=== PATIENT | female | born 1995 | race Caucasian/White ===

== ENCOUNTER 2023-03-22 18:17 | Emergency (ER) | payer OTHER, SELFPAY ==
[2023-03-22] VITALS (16 sets, daily range): BP systolic 114–134; BP diastolic 89–101; PULSE 74–126; RESP 13–25; TEMP 37.4; O2SAT 88–100; BMI 23.7
--- NOTE | 2023-03-22 18:34 | ECG_ITS ---
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
--- NOTE | 2023-03-22 18:36 | ED_ITS ---
HPI - Dizziness General Chief Complaint: Syncope Stated Complaint: irregular heart beat, feel like passing Time Seen by Provider: 03/22/23 18:23 Source: patient Mode of arrival: walk-in Limitations: no limitations History of Present Illness HPI Narrative: Since drinking excessive amount of alcohol on February 25, the patient has been experiencing palpitations and bouts of dizziness to the point in which she sometimes feels like I am going to pass out . No prior history of dysrhythmia, thyroid issues or electrolyte abnormalities. On further questioning, the patient admits to being a regular, heavy alcohol drinker through February 25. Then she took some time off from alcohol use - about 2 weeks - before resuming daily alcohol use but at a smaller amount. She had a shot of liquor this morning because it seems to calm my nerves . Related Data Home Medications Medication Instructions Recorded Confirmed No Known Home Medications 03/22/23 03/22/23 Allergies Allergy/AdvReac Type Severity Reaction Status Date / Time No Known Drug Allergies Allergy Verified 03/22/23 18:25 Exam Narrative Exam Narrative: Nurses notes and vital signs reviewed and patient is not hypoxic. afebrile General: Well-appearing and in no apparent distress. Skin: Warm, dry, no pallor noted. No rash. Head: Normocephalic, atraumatic. Eye: Pupils are equal, round and EOMI. No scleral icterus. Ears, Nose, Mouth, and Throat: Oral mucosa is slightly dry Cardiovascular: tachycardia. Respiratory: No accessory muscle use or respiratory distress. Lungs are clear to auscultation, no wheezing, rales or rhonchi Musculoskeletal: normal ROM, no calf or popliteal tenderness, no lower extremity edema/swelling GI: Abdomen is soft, non-distended. Normal bowel sounds. No masses appreciated. No tenderness to palpation. No rebound, guarding, or rigidity noted. Neurological: A&O x4. No cranial nerve dysfunction observed. No truncal ataxia. Moves all extremities. Sensation intact. Psychiatric: Cooperative and interactive. Normal mood and affect. Constitutional Vital Signs, click to edit/add: Last Vital Signs Temp 99.3 F 03/22/23 18:19 Pulse 104 H 03/22/23 18:45 Resp 20 03/22/23 18:19 BP 125/89 03/22/23 18:45 Pulse Ox 98 03/22/23 18:19 O2 Del Method Room Air 03/22/23 18:19 Course Vital Signs Vital signs: Vital Signs Temperature 99.3 F 03/22/23 18:19 Pulse Rate 126 H 03/22/23 18:19 Respiratory Rate 20 03/22/23 18:19 Blood Pressure 132/101 H 03/22/23 18:19 Pulse Oximetry 98 03/22/23 18:19 Oxygen Delivery Method Room Air 03/22/23 18:19 Temperature 99.3 F 03/22/23 18:19 Pulse Rate 104 H 03/22/23 18:45 Respiratory Rate 20 03/22/23 18:19 Blood Pressure 125/89 03/22/23 18:45 Pulse Oximetry 98 03/22/23 18:19 Oxygen Delivery Method Room Air 03/22/23 18:19 MDM - Dizziness MDM Narrative Medical decision making narrative: Patient was placed on residential monitor and EKG obtained. Blood drawn and sent for evaluation including thyroid studies, magnesium and electrolytes, renal function and . orthostatic vital signs were obtained. Patient received a liter of normal saline IV fluid. Patient signed out to Dr Coy to review the test results, response to therapy and determine appropriate disposition. Discharge Plan Discharge Chief Complaint: Syncope Clinical Impression: Heart palpitations Patient Disposition: Still a Patient Prescriptions / Home Meds: No Action No Known Home Medications Referrals: Satish Welch MD [Primary Care Provider] - 1 week
[2023-03-22] MEDS: 0.9 % SODIUM CHLORIDE 1,000 ML 999 ML IV (18:51)
[2023-03-22 18:52] LABS: Basophils Absolute Auto 0.1 10^3/uL (0.0-0.1); Basophils Percent Auto 0.4 % (0.2-2.0); Eosinophils Percent Auto 0.2 % (0.9-7.0); Hematocrit 44.1 % (36.0-48.0); Hemoglobin 15.5 g/dL (12.0-16.0); Immature Granulocytes Abs Auto 0.02 10^3/uL (0.00-0.03); Immature Granulocytes Pct Auto 0.2 % (0.0-0.5); Lymphocytes Absolute Auto 1.8 10^3/uL (1.2-3.8); Lymphocytes Percent Auto 15.5 % (20.5-60.0); Mean Corpuscular HGB Conc 35.1 g/dL (29.9-35.2); Mean Corpuscular Hemoglobin 34.2 pg (26.7-34.0); Mean Corpuscular Volume 97.4 fL (81.0-99.0); Mean Platelet Volume 9.8 fL (9.5-13.5); Monocytes Absolute Auto 0.6 10^3/uL (0.3-0.8); Monocytes Percent Auto 4.9 % (1.7-12.0); Neutrophils Absolute Auto 9.3 10^3/uL (1.4-6.5); Neutrophils Percent Auto 78.8 % (43.0-75.0); Platelet Count 300 10^3/uL (150-450); Red Blood Count 4.53 10^6/uL (4.20-5.40); Red Cell Distribution Width 11.3 % (11.0-15.0); White Blood Count 11.8 10^3/uL (4.0-11.0)
[2023-03-22 19:07] LABS: Alanine Aminotransferase 29 U/L (14-59); Albumin Globulin Ratio 1.5; Albumin Level 4.8 g/dL (3.4-5.0); Alkaline Phosphatase 55 U/L (46-116); Anion Gap 16.2; Aspartate Amino Transferase 7 U/L (15-37); BUN Creatinine Ratio 6.8; Bilirubin Total 0.8 mg/dL (0.2-1.0); Calcium 9.2 mg/dL (8.5-10.1); Carbon Dioxide 23.2 mmol/L (21.0-32.0); Chloride 103 mmol/L (98-107); Estimated GFR (African America >60 (>=60); Estimated GFR (Non-African Ame >60 (>=60); Globulin 3.1 g/dL; Glucose 99 mg/dL (74-106); Potassium 3.4 mmol/L (3.5-5.1); Sodium 139 mmol/L (136-145); Total Protein 7.9 g/dL (6.4-8.2)
[2023-03-22 19:15] LABS: Magnesium 1.9 mg/dL (1.8-2.4); Thyroid Stimulating Hormone 1.897 uIU/mL (0.358-3.740)
[2023-03-22 19:47] LABS: HCG Qualitative NEGATIVE (NEGATIVE)
== END 2023-03-22 20:28 | disposition home or self-care (01) ==
PROVIDERS: Emergency Provider Emergency Medicine; PCP Family Medicine
DX: R00.2 Palpitations (principal); E87.6 Hypokalemia
CPT/HCPCS: 36415; 80053; 83735; 84443; 84703; 85025; 93005; 96360; 99284

== ENCOUNTER 2025-05-13 18:22 | Emergency (ER) | payer OTHER, SELFPAY ==
[2025-05-13 18:29] VITALS: BP 127/98; PULSE 99; TEMP 36.7; O2SAT 98; BMI 31.4
--- OUTSIDE RECORDS SUMMARY | 2025-05-13 18:29 | XMS_ITS | Encounter Summary ---
Author Organization [facility] Address [address] [place] [address] Care Team Providers Care Equipment Maintenance Tech Name Role Phone Satish Welch MD Primary Care Provider [phone] Shaikh BERTA Hermosillo Unavailable [phone] Encounter Details Date Type Department Care Team (Late st Contact Info) Description 01/12/2025 Orders Only [facility] [address] [place] [address] Satish Welch MD [address] [place] [address] Social History Tobacco Use Types Packs/Day Years Used Date Smoking Tobacco: Every Day Cigarettes Smokeless Tobacco: Current Alcohol Use Standard Drinks/Week Comments Yes 56 (1 standard drink = 0.6 oz pu re alcohol) B1300 Health Literacy Answer Date Recor ded How often do you need to hav e someone help you when you read instructions, pamphlets, or other written material from your doctor or pharmacy? Never 03/24/2024 Social Connection and Isolation Panel [NHANES] A nswer Date Recorded In a typical week, how many times do you talk on the phone with family, friends, or neighbors? Once a week 03/24/20 How often do you get togethe r with friends or relatives? Never 03/24/2024 How often do you attend chur ch or mormon services? Never 03/24/2024 Do you belong to any clubs o r organizations such as jewish groups, unions, fraternal or athletic groups, or school groups? No 03/24/2024 How often do you attend meet ings of the clubs or organizations you belong to? Never 03/24/2024 Are you , , di vorced, , never , or living with a partner? Living with partner 03/24/2024 AUDIT-C Answer Date Recorded Q1: How often do you have a drink containing alcohol? 4 or more times a week 03/24/2024 Q2: How many drinks containi ng alcohol do you have on a typical day when you are drinking? 5 or 6 Q3: How often do you have si x or more drinks on one occasion? Daily or almost daily 03/24/2024 Overall Financial Resource Strain (CARDIA) Answe r Date Recorded How hard is it for you to pa y for the very basics like food, housing, medical care, and heating? Somewhat hard 03/24/2024 [facility] of Occupat ional Health - Occupational Stress Questionnaire Answer Date Recorded Do you feel stress - tense, restless, nervous, or anxious, or unable to sleep at night because your mind is troubled all the time - these days? Very much 03/24/2024 Exercise Vital Sign Answer Date Recorde d On average, how many days pe r week do you engage in moderate to strenuous exercise (like a brisk walk)? 1 day 03/24/2024 On average, how many minutes do you engage in exercise at this level? 10 min 03/24/2024 Hunger Vital Sign Answer Date Recorded Within the past 12 months, y ou worried that your food would run out before you got the money to buy more. Sometimes true Within the past 12 months, t he food you bought just didn't last and you didn't have money to get more. Never true PRAPARE - Transportation Answer Date Re corded In the past 12 months, has l ack of transportation kept you from medical appointments or from getting medications? Yes 03/11 In the past 12 months, has l ack of transportation kept you from meetings, work, or from getting things needed for daily living? No 03/24/2024 Housing Stability Vital Sign Answer Dominik e Recorded In the last 12 months, was t here a time when you were not able to pay the mortgage or rent on time? No 03/24/2024 In the past 12 months, how m any times have you moved where you were living? 0 03/24/2024 At any time in the past 12 m [facility], were you homeless or living in a intermediate (including now)? No 03/24/2024 Comments Unknown Sex and Gender Information Value Date Recorded Sex Assigned at Not on file Legal Sex Female 7:23 PM EDT Gender Identity Not on file Sexual Orientation Not on file documented as of this encounter Plan of Treatment Not on file documented as of this encounter Visit Diagnoses Not on filedocumented in this encounter Care Teams Equipment Maintenance Tech Relationship Specialty Start Date End Date Satish Welch MD PCP - General Family Medicine 03/15/24 Shaikh Hermosillo MD [address] [place] [address] PCP - [facility] 08/11/24 documented as of this encounter
--- OUTSIDE RECORDS SUMMARY | 2025-05-13 18:29 | XMS_ITS | Encounter Summary ---
Author Organization [facility] Address [address] [place] [address] Care Team Providers Care Wanigan Clerk Name Role Phone Satish Welch MD Primary Care Provider [phone] Shaikh BERTA Hermosillo Unavailable [phone] Encounter Details Date Type Department Care Team (Late st Contact Info) Description 12/28/2024 Results Follow-Up [facility] [address] [place] [address] Satish Welch MD [address] [place] [address] Hemoglobin A1c, Basic metabolic panel, CBC and differential, Additional followed-up results: 3 Social History Tobacco Use Types Packs/Day Years [...] friends, or neighbors? Once a week 03/24/20 24 How often do you get togethe r with friends or relatives? Never 03/24/2024 How often do you attend chur ch or gnosticism services? Never 03/24/2024 Do you belong to any clubs o r organizations such as sikh groups, unions, fraternal or athletic groups, or [...] medical care, and heating? Somewhat hard 03/24/2024 [facility] of Occupat ional Health - Occupational Stress [...] any time in the past 12 m [facility], were you homeless or living in a senior care (including now)? No 03/24/2024 Comments Unknown Sex and Gender Information Value Date Recorded Sex Assigned at Not on file Legal Sex Female 7:23 PM EDT Gender Identity Not on file Sexual Orientation Not on file documented as of this encounter Plan of Treatment Not on file documented as of this encounter Visit Diagnoses Not on filedocumented in this encounter Care Teams Wanigan Clerk Relationship Specialty Start Date End Date Satish Welch MD PCP - General Family Medicine 03/15/24 Shaikh Hermosillo MD [address] [place] [address] PCP - [facility] 08/11/24 documented as of this encounter
--- OUTSIDE RECORDS SUMMARY | 2025-05-13 18:29 | XMS_ITS | Encounter Summary ---
Author Organization [facility] Address [address] [place] [address] Care Team Providers Care Business Applications Manager Name Role Phone Satish Welch MD Primary Care Provider [phone] Shaikh BERTA Hermosillo Unavailable [phone] Reason for Visit * Reason Onset Date Comments Med Refill 02/23/2025 Encounter Details Date Type Department Care Team (Late st Contact Info) Description 02/23/2025 Refill [facility] [address] [place] [address] Satish Welch MD [address] [place] [address] Insomnia due to stress (Primary Dx) Social History Tobacco Use Types Packs/Day Years [...] 03/24/2024 How often do you attend chur or advent services? Never 03/24/2024 Do you belong to any clubs o r organizations such as buddhism groups, unions, fraternal or athletic groups, or [...] medical care, and heating? Somewhat hard 03/24/2024 [facility] of Occupat ional Health - Occupational Stress [...] any time in the past 12 m [facility], were you homeless or living in a fdc (including now)? No 03/24/2024 Comments Unknown Sex and Gender Information Value Date Recorded Sex Assigned at Not on file Legal Sex Female 7:23 PM EDT Gender Identity Not on file Sexual Orientation Not on file documented as of this encounter Miscellaneous Notes * Telephone Encounter - Satish Welch MD - 02/24/2025 4:31 PM EDT Trazodone sent to use as needed. Need to reschedule office visit. documented in this encounter Plan of Treatment Not on file documented as of this encounter Visit Diagnoses Diagnosis Insomnia due to stress- Primary documented in this encounter Care Teams Business Applications Manager Relationship Specialty Start Date End Date Satish Welch MD PCP - General Family Medicine 03/15/24 Shaikh Hermosillo MD [address] [place] [address] PCP - [facility] 08/11/24 documented as of this encounter
--- OUTSIDE RECORDS SUMMARY | 2025-05-13 18:29 | XMS_ITS | Clinical Summary ---
Author Organization [facility] Address [id number] [address] [place] [address] Care Team Providers Care Alcoholism Worker Name Role Phone Satish Welch MD Primary Care Provider [phone] Allergies No known active allergies Medications [id number] a-fish oil ( GUMMY) 400 mcg-35 mg -25 mg-5 mg tablet,chewable Chew 1 tablet and swallow daily. 1 Active ondansetron ODT (ZOFRAN ODT) 4 mg disintegrating tablet Dissolve 1 tablet (4 mg total) on tongue every 8 (eight) hours as needed for nausea for up to 10 doses. 10 tablet 2 Active ibuprofen (MOTRIN) 800 mg tablet Take 1 tablet (800 mg total) by mouth 3 (three) times a day. 21 tablet 2 Active Active Problems No known active problems Family History Medical History Relation Name Comments No Known Problems Father Depression Mother Relation Name Status Comments Father Mother Social History Tobacco Use Types Packs/Day Years Used Date Smoking Tobacco: Every Day Cigarettes Vaping/E-cigarettes Smokeless Tobacco: Never Tobacco Cessation:Ready to Q uit: No; Counseling Given: Yes Alcohol Use Standard Drinks/Week Comments Yes 0 (1 standard drink = 0.6 oz pur e alcohol) Childcare Answer Date Recorded Childcare Unknown 07/25/2020 Employment Answer Date Recorded Employment Unknown 07/25/2020 Purpose - Life Answer Date Recorded Purpose and direction in life Unknown Comments No Sex and Gender Information Value Date Recorded Sex Assigned at Not on file Legal Sex Female 11:50 AM EDT Gender Identity Not on file Sexual Orientation Not on file Last Filed Vital Signs Vital Sign Reading Time Taken Comments Blood Pressure 125/92 02/26/2022 8:45 PM EDT Pulse 100 02/26/2022 8:44 PM EDT Temperature 36.9 C (98.5 F) 02/26/2022 8:44 PM EDT Respiratory Rate 20 02/26/2022 8:44 PM EDT Oxygen Saturation 96% 02/26/2022 8:45 PM EDT Inhaled Oxygen Concentration - - Weight 61.2 kg (135 lb) 02/26/2022 8:44 PM EDT Height 162.6 cm (5' 4 ) 02/26/2022 8:44 PM EDT Body Mass Index 23.17 02/26/2022 8:44 PM EDT Plan of Treatment Health Maintenance Due Date Last Done Comments Depression Screening 2007 Tobacco Screening 2007 Adult BMI Screening 2013 DTaP,Tdap and Td Vaccines (1 - Tdap) 2014 Pap Smear 2016 Influenza Vaccine 04/11/2025 Medical Devices Not on file Insurance Care Teams Alcoholism Worker Relationship Specialty Start Date End Date Satish Welch MD PCP - General Family Medicine 07/25/20
--- OUTSIDE RECORDS SUMMARY | 2025-05-13 18:29 | XMS_ITS | Clinical Summary ---
Author Organization [facility] Address [address] [place] [address] Care Team Providers Care Barber Shop Manager Name Role Phone Satish Welch MD Primary Care Provider [phone] Shaikh BERTA Hermosillo Unavailable [phone] Allergies No known active allergies Medications hydrOXYzine HCl (Atarax) 25 MG tabletIndication s:JOSE (generalized anxiety disorder) Take 1 tablet (25 mg) by mouth 4 (four) times a day as needed for anxiety 30 tablet 2 02/14/2025 Active omeprazole (PriLOSEC) [address] capsuleIndicatio ns:Chronic superficial gastritis without bleeding Take 1 capsule (40 mg) by mouth in the morning. Take before meals. Do not crush or chew. 30 capsule 3 02/17/2025 Active FLUoxetine (PROzac) 20 MG capsuleIndicatio ns:MDD (major depressive disorder), recurrent episode, moderate (HCC) Take 1 capsule (20 mg) by mouth Daily 30 capsule 3 02/17/2025 Active traZODone (Desyrel) 50 MG tabletIndication s:Insomnia due to stress Take 1 tablet (50 mg) by mouth at bedtime 30 tablet 3 02/24/2025 Active Active Problems Problem Noted Date Diagnosed Date Insomnia due to stress 02/24/2025 Class 1 obesity due to exces s calories without serious comorbidity with body mass index (BMI) of 32.0 to 32.9 in adult 01/12/2025 Encounter for long-term (current) use of medicat ions 01/12/2025 Annual physical exam 12/23/2024 Assessment & Plan (12/23/2024 9:57 AM EDT): Due for labs. Discussed proper diet and regular aerobic exercise. Need aerobic exercise 5-6 days a week for 30 minutes at a time. Smaller portions and limit total calories. Colonoscopy after age 45. Tetanus every 10 years. Advised not to smoke. JOSE (generalized anxiety disorder) 12/23/2024 MDD (major depressive disord er), recurrent episode, moderate 12/23/2024 Chronic superficial gastritis without bleeding 0 12/23/2024 Resolved Problems Problem Noted Date Diagnosed Date Resolved Date Dental infection 02/23/2024 12/23/2024 Assessment & Plan (02/23/2024 2:57 PM EDT): No overt dental abscess or systemic signs Will treat with oral augmentin. Recommended evaluated by dentist Yeast infection of the vagina 02/23/2024 12/23/2024 Assessment & Plan (02/23/2024 2:57 PM EDT): Will call in Fluconazole. Encounters Date Type Department Care Team Description 02/28/2025 Refill [facility] [address] [place] [id number] Satish Welch MD 02/27/2025 Refill [facility] [address] [place] [address] Satish Welch MD Closed fracture of tooth, initial encounter 02/24/2025 Refill [facility] [address] [place] [address] Satish Welch MD Closed fracture of tooth, initial encounter 02/23/2025 Refill [facility] [address] [place] [address] Satish Welch MD Insomnia due to stress (Primary Dx) 02/17/2025 Refill [facility] [address] [place] [address] Satish Welch MD Chronic superficial gastritis without bleeding; MDD (major depressive disorder), recurrent episode, moderate (HCC); Closed fracture of tooth, initial encounter 02/14/2025 Refill [facility] [address] [place] [address] Satish Welch MD JOSE (generalized anxiety disorder) ; Closed fracture of tooth, initial encounter from Last 3 Months Family History Medical History Relation Name Comments No Known Problems Father Coronary artery disease Maternal Grandfather Stroke Mother Relation Name Status Comments Father Maternal Grandfather Mother Social History Tobacco Use Types Packs/Day Years Used Date Smoking Tobacco: Every Day Cigarettes Smokeless Tobacco: Current Tobacco Cessation:Ready to Q uit: Not Asked; Counseling Given: Not Answered Alcohol Use Standard Drinks/Week Comments Yes 56 [...] often do you attend chur ch or jew services? Never 03/24/2024 Do you belong to any clubs o r organizations such as quaker groups, unions, fraternal or athletic groups, or [...] medical care, and heating? Somewhat hard 03/24/2024 [facility] of Occupat ional Health - Occupational Stress [...] any time in the past 12 m [facility], were you homeless or living in a halfway (including now)? No 03/24/2024 Comments Unknown Sex and Gender Information Value Date Recorded Sex Assigned at Not on file Legal Sex Female 7:23 PM EDT Gender Identity Not on file Sexual Orientation Not on file Last Filed Vital Signs Vital Sign Reading Time Taken Comments Blood Pressure 140/78 12/23/2024 9:29 AM EDT Pulse 102 12/23/2024 9:29 AM EDT Temperature 36.6 C (97.8 F) 12/23/2024 9:29 AM EDT Respiratory Rate 20 12/23/2024 9:29 AM EDT Oxygen Saturation 99% 12/23/2024 9:29 AM EDT Inhaled Oxygen Concentration - - Weight 86.6 kg (191 lb) 12/23/2024 9:29 AM EDT Height 162.6 cm (5' 4 ) 12/23/2024 9:29 AM EDT Body Mass Index 32.79 12/23/2024 9:29 AM EDT Plan of Treatment Health Maintenance Due Date Last Done Comments Influenza Vaccine (#1) 2025 Insurance [employer] Care Teams Barber Shop Manager Relationship Specialty Start Date End Date Satish Welch MD PCP - General Family Medicine 03/15/24 Shaikh Hermosillo MD [address] [place] [address] PCP - [facility] 08/11/24
--- OUTSIDE RECORDS SUMMARY | 2025-05-13 18:29 | XMS_ITS | Encounter Summary ---
Author Organization [facility] Address [address] [place] [address] Care Team Providers Care Ballaster Name Role Phone Satish Welch MD Primary Care Provider [phone] Shaikh BERTA Hermosillo Unavailable [phone] Reason for Visit * Reason Onset Date Comments Med Refill 02/28/2025 Encounter Details Date Type Department Care Team (Late st Contact Info) Description 02/28/2025 Refill [facility] [address] [place] [address] Satish Welch MD [address] [place] [address] Social History Tobacco Use Types Packs/Day Years [...] often do you attend chur ch or synagogue services? Never 03/24/2024 Do you belong to any clubs o r organizations such as sikhism groups, unions, fraternal or athletic groups, or [...] medical care, and heating? Somewhat hard 03/24/2024 [facility] of Occupat ional Health - Occupational Stress [...] any time in the past 12 m [facility], were you homeless or living in a jail (including now)? No 03/24/2024 Comments Unknown Sex and Gender Information Value Date Recorded Sex Assigned at Not on file Legal Sex Female 7:23 PM EDT Gender Identity Not on file Sexual Orientation Not on file documented as of this encounter Plan of Treatment Not on file documented as of this encounter Visit Diagnoses Not on filedocumented in this encounter Care Teams Ballaster Relationship Specialty Start Date End Date Satish Welch MD PCP - General Family Medicine 03/15/24 Shaikh Hermosillo MD [address] [place] [address] PCP - [facility] 08/11/24 documented as of this encounter
--- OUTSIDE RECORDS SUMMARY | 2025-05-13 18:30 | XMS_ITS | Encounter Summary ---
Author Organization [facility] tem Address [id number] [address] [place] [address] Care Team Providers Care Drug Room Operator Name Role Phone Satish Welch MD Primary Care Provider [phone] Encounter Details Date Type Department Care Team (Late st Contact Info) Description 04/05/2021 Telephone Maternal- Medicine at [facility] [address] [facility] [place] [address] Lili Deleon, [facility] Social History Tobacco Use Types Packs/Day Years Used Date Smoking Tobacco: Never Assessed Childcare Answer Date Recorded Childcare Unknown 07/25/2020 Employment Answer Date Recorded Employment Unknown 07/25/2020 Purpose - Life Answer Date Recorded Purpose and direction in life Unknown Comments Unknown Sex and Gender Information Value Date Recorded Sex Assigned at Not on file Legal Sex Female 11:50 AM EDT Gender Identity Not on file Sexual Orientation Not on file documented as of this encounter Plan of Treatment Not on file documented as of this encounter Visit Diagnoses Not on filedocumented in this encounter Care Teams Drug Room Operator Relationship Specialty Start Date End Date Satish Welch MD PCP - General Family Medicine 07/25/20 documented as of this encounter
--- OUTSIDE RECORDS SUMMARY | 2025-05-13 18:30 | XMS_ITS | Encounter Summary ---
Author Organization [facility] tem Address [id number] [address] [place] [address] Care Team Providers Care Esthetician Name Role Phone Satish Welch MD Primary Care Provider [phone] Encounter Details Date Type Department Care Team (Late st Contact Info) Description 04/06/2021 Orders Only Maternal- Medicine at [facility] [address] [place] [id number] External, Scanning Provider Social History Tobacco Use Types Packs/Day Years Used Date Smoking Tobacco: Every Day Cigarettes Smokeless Tobacco: Never Alcohol Use Standard Drinks/Week Comments Not Currently 0 (1 standard drink = 0.6 oz pur e alcohol) Childcare Answer Date Recorded Childcare Unknown 07/25/2020 Employment Answer Date Recorded Employment Unknown 07/25/2020 Purpose - Life Answer Date Recorded Purpose and direction in life Unknown Comments Yes Sex and Gender Information Value Date Recorded Sex Assigned at Not on file Legal Sex Female 11:50 AM EDT Gender Identity Not on file Sexual Orientation Not on file documented as of this encounter Plan of Treatment Not on file documented as of this encounter Procedures Procedure Name Priority Date/Time Associated Diagnosis Comments US PREG LMTD 1 OR MORE FETUS Routine 03/29/2021 US PREG LMTD 1 OR MORE FETUS Routine 01/25/2021 documented in this encounter Results * Ultrasound limited 1 or more fetus (03/29/2021) Anatomical Region Laterality Modality OB-MACHINE STEMMER Ultrasound Narrative 03/29/2021 see attached report us Scanning Provider External IMG US ORDERABLES Silvino tc Result - Final * Ultrasound limited 1 or more fetus (01/25/2021) Anatomical Region Laterality Modality OB-MACHINE STEMMER Ultrasound Narrative 01/25/2021 see attached report us Scanning Provider External IMG US ORDERABLES Silvino tc Result - Final documented in this encounter Visit Diagnoses Not on filedocumented in this encounter Care Teams Esthetician Relationship Specialty Start Date End Date Satish Welch MD PCP - General Family Medicine 07/25/20 documented as of this encounter
--- OUTSIDE RECORDS SUMMARY | 2025-05-13 18:30 | XMS_ITS | Encounter Summary ---
Author Organization [facility] Address [address] [place] [address] Care Team Providers Care Technical Sales Associate Name Role Phone Satish Welch MD Primary Care Provider [phone] Shaikh BERTA Hermosillo Unavailable [phone] Reason for Visit * Reason Onset Date Comments Med Refill 02/02/2025 Encounter Details Date Type Department Care Team (Late st Contact Info) Description 02/02/2025 Refill [facility] [address] [place] [address] Satish Welch MD [address] [place] [address] Social History Tobacco Use Types Packs/Day Years [...] often do you attend chur ch or methodist services? Never 03/24/2024 Do you belong to any clubs o r organizations such as taoist groups, unions, fraternal or athletic groups, or [...] medical care, and heating? Somewhat hard 03/24/2024 [facility] [place] [facility] - Occupational Stress [...] any time in the past 12 m [facility], were you homeless or living in [...] on filedocumented in this encounter Care Teams Technical Sales Associate Relationship Specialty Start Date End Date Satish Welch MD PCP - General Family Medicine 03/15/24 Shaikh Hermosillo MD [address] [place] [address] PCP - [facility] 08/11/24 documented as of this encounter
--- NOTE | 2025-05-13 18:45 | PC.NURSE ---
PT ALSO HAS TOOTH INFECTION THAT SHE HAS BEEN TAKING LEFTOVER ANTIBIOTICS AND TYLENOL. VOMITING AND DIARRHEA STARTED TODAY
--- NOTE | 2025-05-13 18:58 | ED_ITS ---
HPI - Nausea/Vomiting/Diarrhea General Chief complaint: Nausea/Vomiting/Diarrhea Stated complaint: NAUSEA Time Seen by Provider: 05/13/25 18:29 Source: patient Mode of arrival: walk-in Limitations: no limitations History of Present Illness HPI Narrative: The patient is a 29-year-old female presenting to the Emergency Department with acute onset nausea, vomiting, and diarrhea starting earlier today. No gback or bloody stool or emesis. She describes abdominal cramping intermittantly that resolves with vomiting and multiple episodes of yellow, bilious emesis. She also reports taking Tylenol Extra Strength (3 tablets every 4?6 hours) for months to manage chronic dental pain. Her last done was this morning. She admits to having several abscessed teeth and poor dentition but has not seen a dentist recently. She states she has alot of anxiety and now has that under control and will follow with dentist soon. This morning, she took leftover amoxicillin, and shortly afterward, began experiencing vomiting and worsening discomfort. She denies fever, hematemesis, melena, or blood in the stool. She also denies headache, visual changes, urinary symptoms, or other systemic complaints. She is able to urinate normally and has been maintaining some oral intake. MD elicited complaint: Reports nausea, vomiting and diarrhea Related Data Home Medications ?Medication ?Instructions ?Recorded ?Confirmed fluoxetine 20 mg capsule 20 mg PO DAILY 05/13/2511/02 hydroxyzine HCl 25 mg tablet 25 mg PO Q8H PRN anxiety 05/13/25 05/13/25 omeprazole 40 mg capsule,delayed 40 mg PO DAILY 05/13/25 release Previous Rx's ?Medication ?Instructions ?Recorded amoxicillin 875 mg tablet 875 mg PO BID 10 days #20 ta bs 05/13/25 chlorhexidine gluconate 0.12 % 15 ml mucous membrane B ID 7 days 05/13/25 mouthwash (Peridex) #600 mL ondansetron 4 mg disintegrating 4 mg PO Q6H PRN nausea and 05/13/25 tablet vomiting #14 tabs potassium chloride 20 mEq 20 meq PO DAILY #5 tabs 11/02 tablet,extended release(part/cryst) (Klor-Con M) Allergies Allergy/AdvReac Type Severity Reaction Status Date / Time No Known Drug Allergies Allergy Verified 05/13/25 18:27 PFSH PFSH Social History Little interest or pleasure in doing things: not at all Feeling down, depressed, or hopeless: not at all Exam Narrative Exam Narrative: * General: Alert, oriented, appears uncomfortable, crying intermittently, actively vomiting in ED. * Head: Atraumatic. * Oral Exam: * Poor dentition with multiple carious and decayed teeth * Visible abscessed areas in the upper left and lower right gums * No intraoral swelling or fluctuance * No sublingual edema or tongue tenderness * Neck: Supple, no cervical lymphadenopathy. * CV/Resp: Normal heart sounds, clear lungs. * GI: * Abdomen soft, non-tender, non-distended * No guarding or rebound * Bowel sounds present * Neuro: Alert, oriented ?3, no focal deficits. * Skin: No rashes or signs of dehydration noted. Constitutional Vital Signs, click to edit/add: Last Vital Signs Temp 98.1 F 05/13/25 18:29 Pulse 99 H 05/13/25 18:29 Resp 18 05/13/25 18:29 BP 127/98 H 05/13/25 18:29 Pulse Ox 98 05/13/25 18:29 O2 Del Method Room Air 05/13/25 18:29 Course Vital Signs Vital signs: Vital Signs Temperature 98.1 F 05/13/25 18:29 Pulse Rate 99 H 05/13/25 18:29 Respiratory Rate 18 05/13/25 18:29 Blood Pressure 127/98 H 05/13/25 18:29 Pulse Oximetry 98 05/13/25 18:29 Oxygen Delivery Method Room Air 05/13/25 18:29 Temperature 98.1 F 05/13/25 18:29 Pulse Rate 99 H 05/13/25 18:29 Respiratory Rate 18 05/13/25 18:29 Blood Pressure 127/98 H 05/13/25 18:29 Pulse Oximetry 98 05/13/25 18:29 Oxygen Delivery Method Room Air 05/13/25 18:29 MDM - Nausea/Vomiting/Diarrhea MDM Narrative Medical decision making narrative: This is a 29-year-old female presenting with acute onset nausea, vomiting, and diarrhea, along with abdominal cramping and known poor dentition. The clinical picture appears possibly multifactorial: symptoms likely triggered or worsened by recent ingestion of leftover amoxicillin and chronic overuse of acetaminophen, in the setting of untreated dental abscesses. On exam, she was actively vomiting yellow bilious material but afebrile, with stable vitals, no focal abdominal tenderness, and no systemic signs of sepsis. Oral exam revealed multiple carious teeth and two visible gum abscesses. Liver function tests are not concerning at this time, hypokalemia (K+ 3.3), and signs of dehydration. Tylenol level was 6.4, not in the toxic range. Urinalysis showed contamination but no clear signs of UTI. Patient was treated with IV fluids, antiemetics (Zofran, then Compazine), and pain control (Toradol). She tolerated a PO challenge after treatment and showed clinical improvement. Given the likely source is odontogenic infection with secondary GI upset and dehydration, she was discharged in stable condition with oral antibiotics, dental rinse, electrolyte replacement, and close follow-up with a dentist and PCP. Return precautions and supportive care instructions were provided. Discharge meds will include: * Amoxicillin 875 mg PO BID ? 10 days prescribed for dental abscesses * Chlorhexidine mouthwash BID for oral hygiene * Zofran 4 mg PO q4?6h PRN given for ongoing nausea at home * Potassium supplementation for 3 days due to low serum K+ Patient tolerated oral fluids on re-challenge and reports significant improvement in symptoms post-medication. She was observed for a period and had no recurrence of vomiting. Discussed with Differential Diagnosis: * Gastroenteritis (viral or antibiotic-induced) * Dental abscess-related systemic symptoms * Medication-related gastritis (especially with chronic high-dose acetaminophen use) * Mild dehydration with electrolyte loss * Early sepsis (less likely?afebrile and hemodynamically stable) * Acetaminophen toxicity ? unlikely with a level of 6.4 and normal LFTs, but chronic overuse is concerning Discharge Diagnosis: * Dental abscess with associated systemic symptoms * Nausea, vomiting, and diarrhea ? likely multifactorial (infection vs med- related) * Dehydration, mild * Hypokalemia (resolved with treatment) * * Jt treat with zofran, amoicillian, peridex, and short interval potassium Differential Diagnosis Differential diagnosis: Likely other Medical Records Attestation: I reviewed the patient's medical records. Lab Data Attestation: I reviewed the patient's lab results. Labs: Lab Results 05/13/25 05/13/25 Range/Units 18:35 19:00 WBC 7.2 (4.0-11.0) 10^3/uL RBC 4.34 (4.20-5.40) 10^6/uL Hgb 14.9 (12.0-16.0) g/dL Hct 42.9 (36.0-48.0) % MCV 98.8 (81.0-99.0) fL MCH 34.3 H (26.7-34.0) pg MCHC 34.7 (29.9-35.2) g/dL RDW 14.0 (11.0-15.0) % Plt Count 300 (150-450) 10^3/uL MPV 9.8 (9.5-13.5) fL Neut % (Auto) 76.7 H (43.0-75.0) % Lymph % (Auto) 14.3 L (20.5-60.0) % [place] % (Auto) 7.7 (1.7-12.0) % Eos % (Auto) 0.3 L (0.9-7.0) % Baso % (Auto) 0.6 (0.2-2.0) % Neut # (Auto) 5.5 (1.4-6.5) 10^3/uL Lymph # (Auto) 1.0 L (1.2-3.8) 10^3/uL [place] # (Auto) 0.6 (0.3-0.8) 10^3/uL Eos # (Auto) 0.0 (0.0-0.7) 10^3/uL Baso # (Auto) 0.0 (0.0-0.1) 10^3/uL Abs Immat Gran (auto) 0.03 (0.00-0.03) 10^3/uL Imm/Tot Granulo (auto) 0.4 (0.0-0.5) % Sodium 141 (136-145) mmol/L Potassium 3.3 L (3.5-5.1) mmol/L Chloride 103 (98-107) mmol/L Carbon Dioxide 21.2 (21.0-32.0) mmol/L Anion Gap 20.1 BUN 11.0 (7.0-18.0) mg/dL Creatinine 1.06 H (0.55-1.02) mg/dL Est GFR ( Amer) >60 (>=60 mL/min/1.73m^2) Est GFR (Non-Af Amer) >60 (>=60 mL/min/1.73m^2) BUN/Creatinine Ratio 10.4 Glucose 147 H (74-106) mg/dL Calcium 9.5 (8.5-10.1) mg/dL Total Bilirubin 1.1 H (0.2-1.0) mg/dL Direct Bilirubin 0.3 H (0.0-0.2) mg/dL AST 49 H (15-37) U/L ALT 40 (14-59) U/L Alkaline Phosphatase 74 (46-116) U/L Total Protein 8.4 H (6.4-8.2) g/dL Albumin 5.0 (3.4-5.0) g/dL Globulin 3.4 g/dL Albumin/Globulin Ratio 1.5 Lipase 23.0 (16.0-77.0) U/L Urine Color Dk. yellow (YELLOW) Urine Clarity Clear (CLEAR) Urine pH 5.5 (5.0-9.0) Ur Specific [place] >=1.030 A (1.005-1.025) Urine Protein 100 A (NEG/TRACE) mg/dL Urine Glucose (UA) Negative (NEGATIVE) mg/dL Urine Ketones 15 A (NEGATIVE) mg/dL Urine Occult Blood Negative (NEGATIVE) Urine Nitrite Negative (NEGATIVE) Urine Bilirubin Small A (NEGATIVE) Urine Urobilinogen 1.0 (0.2-1.0) EU/dL Ur Leukocyte Esterase Negative (NEGATIVE) Urine RBC None seen (0-2) #/HPF Urine WBC 0-2 A (NONE SEEN) #/HPF Ur Squamous Epith Cells Many A (NONE/RARE) #/LPF Urine Crystals Seen A (None Seen) #/HPF Calcium Oxalate Crystal Moderate Amorphous Sediment Moderate Urine Bacteria Moderate A (NONE SEEN) #/HPF Urine Casts None seen (NONE SEEN) #/LPF Urine Mucus Small A (NONE SEEN) Ur Culture Indicated[place] [place] HCG, Qual Negative (NEGATIVE) Acetaminophen 6.4 L (10.0-30.0) ug/mL Discharge Plan Discharge Chief Complaint: Nausea/Vomiting/Diarrhea Clinical Impression: Acute dehydration, Dental infection, Nausea & vomiting Patient Disposition: Home, Self-Care Time of Disposition Decision: 21:09 Condition: Good Prescriptions / Home Meds: New amoxicillin 875 mg tablet 875 mg PO BID 10 Days Qty: 20 0RF ondansetron 4 mg tablet,disintegrating 4 mg PO Q6H PRN (Reason: nausea and vomiting) Qty: 14 0RF chlorhexidine gluconate [Peridex] 0.12 % mouthwash 15 ml mucous membrane BID 7 Days Qty: 600 0RF potassium chloride [Klor-Con M20] 20 mEq tablet,ER particles/crystals 20 meq PO DAILY Qty: 5 0RF No Action fluoxetine 20 mg capsule 20 mg PO DAILY hydroxyzine HCl 25 mg tablet 25 mg PO Q8H PRN (Reason: anxiety) omeprazole 40 mg capsule,delayed release(DR/EC) 40 mg PO DAILY Print Language: Yi Instructions: Dehydration (DC), Hypokalemia (ED) Additional Instructions: Discharge Info: Medications: * Amoxicillin 875 mg PO BID ? 10 days * Chlorhexidine mouthwash BID ? 7 days rinse mouth with 10mL and spit. * Zofran 4 mg PO q4?6h PRN for nausea * Potassium supplement daily ? 3 days * If needed only...Tylenol only as directed: Max 3,000 mg/day Wound/Dental Care: * Use mouthwash as prescribed * Avoid hot, spicy, or acidic foods until abscess improves * Apply cold compress if external swelling develops Follow-up * Urgent follow-up with dentist for definitive treatment of abscesses (likely extractions) * Primary care provider within 1 week for medication review and ongoing symptom management Return to ED if: * Fever > 100.4?F * Swelling of the face or neck * Difficulty swallowing, breathing, or opening mouth * Persistent vomiting, worsening diarrhea * Weakness, dizziness, confusion * Signs of dehydration (dry mouth, no urine output, etc.) Patient was discharged in improved condition, able to tolerate oral intake, and agreeable to follow-up plan. Referrals: Satish Welch MD [Primary Care Provider, [facility]] - As soon as possible
[2025-05-13 19:08] LABS: Hematocrit 42.9 % (36.0-48.0); Hemoglobin 14.9 g/dL (12.0-16.0); Immature Granulocytes Abs Auto 0.03 10^3/uL (0.00-0.03); Immature Granulocytes Pct Auto 0.4 % (0.0-0.5); Lymphocytes Absolute Auto 1.0 10^3/uL (1.2-3.8); Mean Corpuscular HGB Conc 34.7 g/dL (29.9-35.2); Mean Corpuscular Hemoglobin 34.3 pg (26.7-34.0); Mean Corpuscular Volume 98.8 fL (81.0-99.0); Platelet Count 300 10^3/uL (150-450); Red Blood Count 4.34 10^6/uL (4.20-5.40); White Blood Count 7.2 10^3/uL (4.0-11.0)
[2025-05-13 19:11] LABS: Glucose Urine UA NEGATIVE (NEGATIVE)
[2025-05-13] MEDS: 0.9 % SODIUM CHLORIDE 1,000 ML 1000 ML IV (19:11)
[2025-05-13 19:14] LABS: HCG Qualitative Urine* NEGATIVE (NEGATIVE)
[2025-05-13 19:28] LABS: Acetaminophen 6.4 ug/mL (10.0-30.0)
[2025-05-13 19:29] LABS: Alanine Aminotransferase 40 U/L (14-59); Albumin Globulin Ratio 1.5; Albumin Level 5.0 g/dL (3.4-5.0); Alkaline Phosphatase 74 U/L (46-116); Anion Gap 20.1; Aspartate Amino Transferase 49 U/L (15-37); Blood Urea Nitrogen 11.0 mg/dL (7.0-18.0); Calcium 9.5 mg/dL (8.5-10.1); Carbon Dioxide 21.2 mmol/L (21.0-32.0); Chloride 103 mmol/L (98-107); Estimated GFR (African America >60 (>=60 mL/min/1.73m^2); Estimated GFR (Non-African Ame >60 (>=60 mL/min/1.73m^2); Globulin 3.4 g/dL; Glucose 147 mg/dL (74-106); Lipase 23.0 U/L (16.0-77.0); Potassium 3.3 mmol/L (3.5-5.1); Sodium 141 mmol/L (136-145); Total Protein 8.4 g/dL (6.4-8.2)
[2025-05-13 19:36] LABS: Cast Seen? NONE SEEN #/LPF (NONE SEEN); Crystals Seen? Seen #/HPF (None Seen); Urine Culture Indicated YES-FRMC
[2025-05-13] MEDS: PROCHLORPERAZINE 10 MG/2 ML VIAL 5 MG IV (20:44)
[2025-05-13] MEDS: KETOROLAC TROMETHAMINE 30 MG/ML VIAL 15 MG IVP (20:44)
== END 2025-05-13 21:21 | disposition home or self-care (01) ==
PROVIDERS: Physician Assistant; Emergency Provider Emergency Medicine; PCP Family Medicine
DX: E86.0 Dehydration (principal); K04.7 Periapical abscess without sinus; R11.2 Nausea with vomiting, unspecified; E87.6 Hypokalemia; K08.89 Other specified disorders of teeth and supporting structures; G89.29 Other chronic pain; R19.7 Diarrhea, unspecified
CPT/HCPCS: 36415; 80048; 80076; 80329; 81001; 83690; 84703; 85025; 87086; 96361; 96374; 96375; 99285; J0780; J1885; J2405